=== PATIENT | female | born 2000 | race African-American/Black ===

== ENCOUNTER 2020-11-26 13:57 | Emergency (ER) | payer MEDICAID ==
[~2020-11-26] VITALS: Ht 165.1 cm; Wt 80.0 kg
[2020-11-26] MEDS ORDERED: IBUP-2029 MT (17:26)
[2020-11-26] MEDS ORDERED: AMOX-424 MT (17:27)
[2020-11-26] MEDS ORDERED: IBUPROFEN 600MG TABLET PO ONE (17:30)
[2020-11-26 17:50] VITALS: BP 115/72
== END 2020-11-26 18:03 | disposition home or self-care (01) ==
LOC: ER 13:57
DX: S80.12XA Contusion of left lower leg, initial encounter (principal); E11.9 Type 2 diabetes mellitus without complications; V09.9XXA Pedestrian injured in unspecified transport accident, initial encounter; Y93.89 Activity, other specified; Y92.89 Other specified places as the place of occurrence of the external cause; Y99.8 Other external cause status
CPT/HCPCS: 73590; 81025; 99283

== ENCOUNTER 2023-11-03 17:32 | Emergency (ER) | payer MEDICAID, OTHER ==
[~2023-11-03] VITALS: Ht 162.6 cm; Wt 73.0 kg
[~2023-11-03 17:32] MED LIST: AMOX-424 MT; IBUP-2029 MT
[2023-11-03 17:49] VITALS: BP 117/64; PULSE 69; RESP 12; O2SAT 99
[2023-11-03 20:30] VITALS: TEMP 98.3
[2023-11-03] MEDS: ACETAMINOPHEN 325MG TABLET PO ONE (20:30)
[2023-11-03] MEDS ORDERED: METF-414 MT (20:56)
== END 2023-11-03 21:07 | disposition home or self-care (01) ==
LOC: ER 17:32
DX: M25.521 Pain in right elbow (principal); E11.9 Type 2 diabetes mellitus without complications; Z76.0 Encounter for issue of repeat prescription
CPT/HCPCS: 73080; 82962; 99283

== ENCOUNTER 2023-12-07 00:06 | Emergency (ER) | payer OTHER ==
[~2023-12-07] VITALS: Ht 167.6 cm; Wt 64.0 kg
[~2023-12-07 00:06] MED LIST changes: +METF-414 MT
[2023-12-07 00:15] VITALS: O2SAT 98
[2023-12-07] MEDS: PREDNISONE 20MG TABLET PO ONE (06:00)
[2023-12-07] MEDS: DIPHENHYDRAMINE 25MG CAPSULE PO ONE (06:00)
[2023-12-07] MEDS: FAMOTIDINE 20MG TABLET PO ONE (06:00)
[2023-12-07] MEDS: DIPHENHYDRAMINE 50MG CAPSULE PO ONE (06:00)
[2023-12-07] MEDS ORDERED: FAMO-135 MT (07:27)
[2023-12-07] MEDS ORDERED: P20 MT (07:27)
[2023-12-07] MEDS ORDERED: TC1C15 TP (07:27)
[2023-12-07] MEDS ORDERED: DIPH25CA83 MT (07:27)
[2023-12-07 08:05] VITALS: BP 119/57; PULSE 77; RESP 20; TEMP 98.1
== END 2023-12-07 08:06 | disposition home or self-care (01) ==
LOC: ER 00:06
DX: L30.9 Dermatitis, unspecified (principal); E11.9 Type 2 diabetes mellitus without complications; F19.90 Other psychoactive substance use, unspecified, uncomplicated
CPT/HCPCS: 99284; Q0163; J7512